=== PATIENT | female | born 1955 | race Caucasian/White ===

== ENCOUNTER 2017-04-29 16:57 | Inpatient (IN) | payer MEDICARE ==
[2017-04-29] MEDS ORDERED: LEVOFLOXACIN 750MG-D5W PMX 750 MG in DEXTROSE/WATER 1 150ML.BAG IVPB STA (19:01)
[2017-04-29] MEDS ORDERED: methylPREDNISolone SOD SUCCI 125 MG/2 ML VIAL IV STA (19:01)
[2017-04-29] MEDS ORDERED: IPRATROPIUM-ALBUTEROL 3 ML NEB INHALATION STA (19:01)
[2017-04-29] MEDS ORDERED: ACETAMINOPHEN TAB 500 MG TAB PO STA (19:03)
[2017-04-29] MEDS ORDERED: KETOROLAC 30 MG/ML 1 ML VIAL IVP STA (19:03)
[2017-04-29] MEDS ORDERED: METOCLOPRAMIDE 5 MG/ML 2 ML VIAL IVP STA (19:03)
--- NOTE | 2017-04-29 19:09 | ED ---
General Adult HPI - General Chief complaint: Extremity Problem,Nontraumatic Stated complaint: High BP, Headache, Extremity Swelling Time Seen by Provider: 04/29/17 18:55 Source: patient Mode of arrival: ambulatory Limitations: no limitations - History of Present Illness Initial comments: This 61-year-old white female presents with a complaint of some shortness of breath, dizziness, nausea, lower extremity edema bilaterally. These have been present for the past couple of days. [place]. She denies any chest pain. She does have a history of COPD does have a chronic cough which is unchanged. She denies any fever or chills at home but does have a temperature in the emergency department. She denies any other known pulmonary or cardiac diseases. She states that she cannot put her shoes on due to the swelling in her feet. She has a chronic headache which seems somewhat worse recently. She is requesting the Tylenol. She does relate that her blood pressure has been running high today and she also has been tachycardic with heart rate up to approximately 120 at times. The relates that she has daily headaches. She denies any other complaints or modifying factors. - Related Data Home Medications Medication Instructions Recorded Confirmed Aspirin 325 mg PO DAILY 04/29/17 04/29/17 Ergocalciferol (Vitamin D2) 50,000 unit PO TH 04/29/17 04/29/17 [Vitamin D2] FLUoxetine HCL [PROzac] 40 mg PO DAILY 04/29/17 04/29/17 Omeprazole 20 mg PO DAILY 04/29/17 04/29/17 Pravastatin Sodium [Pravachol] 20 mg PO DAILY 04/29/17 04/29/17 Turmeric Root Extract [Turmeric] 500 mg PO DAILY 04/29/17 04/29/17 amLODIPine [Norvasc] 10 mg PO DAILY 04/29/17 04/29/17 oxyCODONE-APAP 5-325MG [Percocet 1 tab PO BID 04/29/17 04/29/17 5-325 mg] risperiDONE [RisperDAL] 2 mg PO HS 04/29/17 04/29/17 traZODone HCL 200 mg PO HS 04/29/17 04/29/17 Allergies Allergy/AdvReac Type Severity Reaction Status Date / Time aripiprazole [From [facility]] Allergy Anaphylaxis Verified 04/29/17 19:32 Penicillins Allergy Rash/Hives Verified 04/29/17 19:32 propoxyphene [From Darvon] Allergy Rash/Hives Verified 04/29/17 19:32 protein supplement Allergy Rash/Hives Verified 04/29/17 17:17 [From [facility]] Sulfa (Sulfonamide Allergy Anaphylaxis Verified 04/29/17 19:33 Antibiotics) Review of Systems ROS Statement: Those systems with pertinent positive or pertinent negative responses have been documented in the HPI. ROS Other: All systems not noted in ROS Statement are negative. Past Medical History Past Medical History: Fibromyalgia, Hyperlipidemia, Hypertension Additional Past Medical History / Comment(s): neuropathy History of Any Multi-Drug Resistant Organisms: None Reported Past Surgical History: Hysterectomy, Tonsillectomy Past Psychological History: No Psychological Hx Reported Smoking Status: Current every day smoker Past Alcohol Use History: None Reported Past Drug Use History: None Reported General Exam - General Exam Comments Initial Comments: GENERAL: The patient is well nourished and well hydrated. VITAL SIGNS: Heart rate, blood pressure, respiratory rate reviewed as recorded in nurse's notes. EYES: Pupils are round and reactive. Extraocular movements are intact. No conjunctival / lid redness or swelling. ENT: No external evidence of injury, swelling, or ecchymosis. Airway is patent. Throat is clear. NECK: Nontender. No swelling or evidence of injury. No subcutaneous emphysema. Trachea is midline. No thyroid mass. HEART: Regular rate and rhythm. Good peripheral pulses. LUNGS/CHEST: Wheezing is noted to the bilateral chest. No ecchymosis, subcutaneous emphysema, or tenderness. ABDOMEN: Abdomen soft without tenderness. No palpable masses or organomegaly. No peritoneal signs. No abdominal wall swelling or ecchymosis. EXTREMITIES: No extremity tenderness. Normal muscle tone and function. No thoracolumbar tenderness. There is mild lower extremity swelling bilaterally but no tenderness. NEUROLOGIC: Sensation is grossly intact. Cranial nerve exam reveals face is symmetrical, tongue is midline, speech is clear. SKIN: No abrasions or ecchymosis is noted. No induration or masses noted. PSYCHIATRIC: Alert and oriented. Appropriate behavior and judgment. Limitations: no limitations Course Vital Signs 04/29/17 04/29/17 04/29/17 17:13 19:05 19:36 Temperature 98.8 F 100.3 F H Pulse Rate 110 H 98 96 Respiratory 18 20 Rate Blood Pressure 178/84 171/78 O2 Sat by Pulse 94 L 95 Oximetry 04/29/17 04/29/17 04/29/17 19:48 19:55 21:45 Temperature 98.9 F Pulse Rate 97 104 H 97 Respiratory 18 16 Rate Blood Pressure 148/68 149/60 O2 Sat by Pulse 99 100 Oximetry Medical Decision Making - Medical Decision Making The patient was seen and examined. All diagnostics were reviewed. An IV is established and she is placed on the electronic pagination system operator. This does show a sinus tachycardia. The EKG shows a sinus tachycardia at a rate of 102. There is no acute ST-T wave changes identified. The MI interval is 132, the QRS duration is 76, and the QTc interval is 456. The patient does receive some Solu-Medrol as well as 2 DuoNeb breathing treatments, Reglan and Toradol, and Tylenol. Levaquin is also ordered. Patient's labs are fairly unremarkable except for an elevated d-dimer. The chest x-ray showed likely pulmonary fibrosis versus possible congestive heart failure. The CT and her grandma the chest does show a groundglass appearance in interstitial infiltrate of changes. There is no evidence of pulmonary fibrosis. Please see report for details. The patient is feeling improved on recheck. She was given an antihypertensive and her blood pressure does come down. She is still complaining of a headache and is given some morphine. Her pulse ox on recheck is 93% on room air. This felt as though she benefit from admission to the hospital. She likely does have an interstitial pneumonia versus bronchitis with a COPD exacerbation. She is agreeable. Case is discussed with internal medicine and they're agreeable for admission as well. - Lab Data Result diagrams: 04/29/17 19:00 04/29/17 19:00 Lab Results 04/29/17 04/29/17 04/29/17 Range/Units 19:00 19:00 19:00 WBC 10.3 (3.8-10.6) k/uL RBC 4.26 (3.80-5.40) m/uL Hgb 13.7 (11.4-16.0) gm/dL Hct 38.8 (34.0-46.0) % MCV 90.9 (80.0-100.0) fL MCH 32.0 (25.0-35.0) pg MCHC 35.2 (31.0-37.0) g/dL RDW 14.3 (11.5-15.5) % Plt Count 274 (150-450) k/uL Neutrophils % 68 % Lymphocytes % 23 % Monocytes % 5 % Eosinophils % 2 % Basophils % 0 % Neutrophils # 7.0 (1.3-7.7) k/uL Lymphocytes # 2.4 (1.0-4.8) k/uL Monocytes # 0.5 (0-1.0) k/uL Eosinophils # 0.2 (0-0.7) k/uL Basophils # 0.0 (0-0.2) k/uL PT (9.0-12.0) sec INR (<1.2) APTT (22.0-30.0) sec D-Dimer (<0.60) mg/L FEU Sodium 138 (137-145) mmol/L Potassium 4.3 (3.5-5.1) mmol/L Chloride 104 (98-107) mmol/L Carbon Dioxide 27 (22-30) mmol/L Anion Gap 7 mmol/L BUN 12 (7-17) mg/dL Creatinine 0.69 (0.52-1.04) mg/dL Est GFR (MDRD) Af Amer >60 (>60 ml/min/1.73 sqM) Est GFR (MDRD) Non-Af >60 (>60 ml/min/1.73 sqM) Glucose 96 (74-99) mg/dL Calcium 9.7 (8.4-10.2) mg/dL Magnesium 1.6 (1.6-2.3) mg/dL Total Bilirubin 0.3 (0.2-1.3) mg/dL AST 42 H (14-36) U/L ALT 56 H (9-52) U/L Alkaline Phosphatase 77 (38-126) U/L Total Creatine Kinase 201 H (30-135) U/L CK-MB (CK-2) 0.8 (0.0-2.4) ng/mL CK-MB (CK-2) Rel Index 0.4 Troponin I <0.012 (0.000-0.034) ng/mL NT-Pro-B Natriuret Pep pg/mL Total Protein 6.8 (6.3-8.2) g/dL Albumin 4.2 (3.5-5.0) g/dL Urine Color Urine Appearance (Clear) Urine pH (5.0-8.0) Ur Specific [place] (1.001-1.035) Urine Protein (Negative) Urine Glucose (UA) (Negative) Urine Ketones (Negative) Urine Blood (Negative) Urine Nitrite (Negative) Urine Bilirubin (Negative) Urine Urobilinogen (<2.0) mg/dL Ur Leukocyte Esterase (Negative) 04/29/17 04/29/17 04/29/17 Range/Units 19:00 19:00 20:20 WBC (3.8-10.6) k/uL RBC (3.80-5.40) m/uL Hgb (11.4-16.0) gm/dL Hct (34.0-46.0) % MCV (80.0-100.0) fL MCH (25.0-35.0) pg MCHC (31.0-37.0) g/dL RDW (11.5-15.5) % Plt Count (150-450) k/uL Neutrophils % % Lymphocytes % % Monocytes % % Eosinophils % % Basophils % % Neutrophils # (1.3-7.7) k/uL Lymphocytes # (1.0-4.8) k/uL Monocytes # (0-1.0) k/uL Eosinophils # (0-0.7) k/uL Basophils # (0-0.2) k/uL PT 10.1 (9.0-12.0) sec INR 1.0 (<1.2) APTT 25.4 (22.0-30.0) sec D-Dimer 0.88 H (<0.60) mg/L FEU Sodium (137-145) mmol/L Potassium (3.5-5.1) mmol/L Chloride (98-107) mmol/L Carbon Dioxide (22-30) mmol/L Anion Gap mmol/L BUN (7-17) mg/dL Creatinine (0.52-1.04) mg/dL Est GFR (MDRD) Af Amer (>60 ml/min/1.73 sqM) Est GFR (MDRD) Non-Af (>60 ml/min/1.73 sqM) Glucose (74-99) mg/dL Calcium (8.4-10.2) mg/dL Magnesium (1.6-2.3) mg/dL Total Bilirubin (0.2-1.3) mg/dL AST (14-36) U/L ALT (9-52) U/L Alkaline Phosphatase (38-126) U/L Total Creatine Kinase (30-135) U/L CK-MB (CK-2) (0.0-2.4) ng/mL CK-MB (CK-2) Rel Index Troponin I (0.000-0.034) ng/mL NT-Pro-B Natriuret Pep 62 pg/mL Total Protein (6.3-8.2) g/dL Albumin (3.5-5.0) g/dL Urine Color Yellow Urine Appearance Clear (Clear) Urine pH 6.5 (5.0-8.0) Ur Specific [place] 1.012 (1.001-1.035) Urine Protein Negative (Negative) Urine Glucose (UA) Negative (Negative) Urine Ketones Negative (Negative) Urine Blood Negative (Negative) Urine Nitrite Negative (Negative) Urine Bilirubin Negative (Negative) Urine Urobilinogen <2.0 (<2.0) mg/dL Ur Leukocyte Esterase Negative (Negative) Disposition Clinical Impression: Fever, Headache, Dyspnea, COPD exacerbation, Hypertension, Tachycardia, Interstitial pulmonary disease, Bronchitis, Bilateral lower extremity edema Disposition: ADMITTED IP TO THIS [facility] Condition: Fair Time of Disposition: 21:58 Decision Date: 04/29/17 Decision Time: 21:58
[2017-04-29 19:12] LABS: Basophils % (A) 0 %; CH 32.1; CHCM 35.6; Eosinophils # (A) 0.2 k/uL (0-0.7); Eosinophils % (A) 2 %; HCT 38.8 % (34.0-46.0); HDW 3.16; HGB 13.7 gm/dL (11.4-16.0); Luc # (Auto) 0.18; Luc % (Auto) 2; Lymphocytes # (A) 2.4 k/uL (1.0-4.8); Lymphocytes % (A) 23 %; MCHC 35.2 g/dL (31.0-37.0); MCV 90.9 fL (80.0-100.0); Mean Platelet Volume 7.9; Monocytes # (A) 0.5 k/uL (0-1.0); Monocytes % (A) 5 %; Neutrophils % (A) 68 %; RBC 4.26 m/uL (3.80-5.40); RDW 14.3 % (11.5-15.5); WBC 10.3 k/uL (3.8-10.6); WBC (Perox) 10.22
[2017-04-29 19:25] LABS: ALT 56 U/L (9-52); AST 42 U/L (14-36); Alkaline Phosphatase 77 U/L (38-126); Anion Gap 7 mmol/L; Blood Urea Nitrogen 12 mg/dL (7-17); Calcium 9.7 mg/dL (8.4-10.2); Carbon Dioxide 27 mmol/L (22-30); Chloride 104 mmol/L (98-107); Glucose 96 mg/dL (74-99); Magnesium 1.6 mg/dL (1.6-2.3); Non-African American GFR(MDRD) >60 (>60 ml/min/1.73 sqM); Potassium 4.3 mmol/L (3.5-5.1); Sodium 138 mmol/L (137-145); Total Bilirubin 0.3 mg/dL (0.2-1.3); Total Protein 6.8 g/dL (6.3-8.2)
[2017-04-29 19:26] LABS: Prothrombin Time 10.1 sec (9.0-12.0)
[2017-04-29 19:27] LABS: Partial Thromboplastin Time 25.4 sec (22.0-30.0)
[2017-04-29 19:32] LABS: Creatine Kinase 201 U/L (30-135)
--- NOTE | 2017-04-29 19:33 | XR ---
EXAMINATION TYPE: XR chest 2V DATE OF EXAM: 04/29/2017 COMPARISON: NONE HISTORY: Leg edema. Difficulty breathing. TECHNIQUE: Frontal and lateral views of the chest are obtained. FINDINGS: There is coarsening of interstitial markings. There is probably some interstitial infiltra te in the right middle lobe and lingula left upper lobe. There is no pleural effusion. Pulmonary vasc ularity is difficult to evaluate because of the interstitial pulmonary density. There are chest leads . Bony thorax is intact. 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 Mild heart failure cannot be en tirely excluded.
[2017-04-29 19:45] LABS: Creatine Kinase MB 0.8 ng/mL (0.0-2.4); Troponin I <0.012 ng/mL (0.000-0.034)
--- NOTE | 2017-04-29 20:24 | US ---
EXAMINATION TYPE: US venous doppler duplex LE DATE OF EXAM: 04/29/2017 8:17 PM COMPARISON: NONE CLINICAL HISTORY: swelling. SIDE PERFORMED: Bilateral TECHNIQUE: The lower extremity deep venous system is examined utilizing real time linear array sonog pedro with graded compression, doppler sonography and color-flow sonography. VESSELS IMAGED: External Iliac Vein (EIV) Common Femoral Vein Deep Femoral Vein Greater Saphenous Vein * Femoral Vein Popliteal Vein Small Saphenous Vein * Proximal Calf Veins (* superficial vessels) Right Leg: Negative for DVT Left Leg: Negative for DVT No evidence of DVT bilateral legs IMPRESSION: Normal exam. No evidence of deep venous thrombosis in both legs.
[2017-04-29] MEDS ORDERED: RX INFO: IV CONTRAST WAS GIVEN 1 EACH MISC MISCELLANE PRN (20:40)
[2017-04-29 20:41] LABS: Appearance,Urine Clear (Clear); Bilirubin,Urine Negative (Negative); Glucose,Urine (UA) Negative (Negative); Ketones,Urine Negative (Negative); Leukocyte Esterase,Urine Negative (Negative); Nitrite,Urine Negative (Negative); PH, Urine 6.5 (5.0-8.0); Protein,Urine Negative (Negative); Specific Gravity,Urine 1.012 (1.001-1.035); UA Billing (MACRO vs. MICRO) CHEM; Urobilinogen,Urine <2.0 mg/dL (<2.0)
[2017-04-29] MEDS ORDERED: FUROSEMIDE 10 MG/ML 10 ML VIAL IV STA (20:45)
--- NOTE | 2017-04-29 21:29 | CT ---
EXAMINATION TYPE: CT angio chest DATE OF EXAM: 04/29/2017 9:08 PM COMPARISON: NONE HISTORY: Hypertension, tachycardia, chest pressure, headache and lower extremity swelling. CT DLP: 628.50 mGycm Automated exposure control for dose reduction was used. CONTRAST: CTA scan of the thorax is performed with IV Contrast, patient injected with 66 mL of Omnipaque 350, p ulmonary embolism protocol. There are 3-D post processed images.. FINDINGS: There is some groundglass interstitial infiltrates the lung apices. There is subpleural interstitial reticular infiltrate in both lungs. Heart is enlarged. There is small pericardial effusion. Thoracic aorta is atheromatous. There is no evidence of aneurysm or dissection. I see no filling defects in the pulmonary arteries. There is no mediastinal adenopathy. There are no hilar masses. There is no pleural effusion. The bony thorax is intact. IMPRESSION: CARDIOMEGALY. NO EVIDENCE OF PULMONARY EMBOLISM. PULMONARY INTERSTITIAL FIBROTIC CHANGES. NO EVIDENCE OF A PULMONARY MASS.
[2017-04-29] MEDS ORDERED: MORPHINE SULFATE 4 MG/ML SYRINGE IV STA (21:54)
[2017-04-29 23:44] VITALS: RESP 18
[2017-04-30 00:36] VITALS: BMI 41.2
[2017-04-30] MEDS: oxyCODONE-APAP 5-325MG 1 EACH TAB PO SCH ×3 (00:48→20:52)
[2017-04-30] MEDS ORDERED: NALOXONE 0.4 MG/ML 1 ML VIAL IV PRN (01:08)
--- NOTE | 2017-04-30 01:18 | P.HPIM ---
History of Present Illness H&P Date: 04/29/17 Chief Complaint: uncontrolled blood pressure 61 year old female with PMHx of COPD, fibromyalgia and hypertension Patient reports that she is visiting from [place] where she resides for the past few days, she has traveled by car and took multiple stops during the trip. She is presented today due to poorly controlled blood pressure. She reports that she did not feel well at home for which she was checking her blood pressure and found it uncontrolled with reading ranging 160-180 for systolic blood pressure. She also reports some difficulty with breathing and coughing that has been worsening over the past few weeks and now associated with right chest pressure every time she tries to take a deep breath. Otherwise she is denying any chest pain dizziness lightheadedness nausea or vomiting. She also reports chronic headache, and bilateral lower extremity pain and tenderness over the calf muscles that has been going on for few months now. She reports that she she has discussed the symptoms with her regular physician who has performed a CAT scan of the head and was negative for any acute process that was done around 3 months ago. She also reports some cardiac workup that was done 2 years ago and reports to be negative. Her doctor has recently increased her amlodipine before coming on discharge up to 10 mg to help control her blood pressure however she's has been noticing increased swelling of her lower extremities over the past few days. She's currently feels comfortable however slightly anxious, her breathing has improved after receiving some breathing treatments. She continues to voice concerns about blood pressure however she denies any focal neurologic deficits, any changes in her speech, any changes in her chronic headache, denies any changes in vision or hearing. In the emergency department d-dimer was done and tested positive for which venous ultrasound of the lower extremity and CT angiogram the chest was performed both were negative for any blood clots. Advanced directives were discussed with the patient she elected to be a full code and named her ex- Yovany Olvera as patient's surrogate encase she loses the capacity to make decisions regarding her health Review of Systems Constitutional: Patient reports no chills, no night sweating, no significant weight changes. Patient reports possible low-grade fever Eyes: Patient reports no visual changes, no eye pain ENT: Patient reports no ear pain, no rhinorrhea, no sore throat Cardiovascular: Patient reports no chest pain, no exertional dyspnea, no orthopnea, no paroxysmal nocturnal dyspnea. Patient reports bilateral lower extremity edema and some chest discomfort mainly on the right side Respiratory:Patient reports shortness of breath, coughing and wheezing Gastrointestinal: Patient reports no diarrhea, no constipation, no nausea no vomiting, no abdominal pain Genitourinary: Patient reports no dysuria, no hematuria, no changes in urinary habits, no genital lesions Musculoskeletal: Patient reports no muscle pain, diffuse joint pain Psychiatric: Patient reports no changes in mood or memory, no suicidal ideation , anxiety Endocrine: Patient reports no heat intolerance, no cold intolerance, no excessive thirst, no polyuria Neurological: Patient reports no focal neurologic deficits, no weakness, no numbness, no tingling Hem/Lymphatic: Patient reports no bleeding tendency, no bruising, no swollen lymph glands Allergic/Immun: Patient reports no recent allergic reactions Skin: Patient reports no rashes, no pruritis, no ulcers Past Medical History Past Medical History: COPD, Fibromyalgia, Hyperlipidemia, Hypertension Additional Past Medical History / Comment(s): neuropathy History of Any Multi-Drug Resistant Organisms: None Reported Past Surgical History: Hysterectomy, Tonsillectomy Past Psychological History: No Psychological Hx Reported Smoking Status: Current every day smoker Past Alcohol Use History: None Reported Past Drug Use History: None Reported - Past Family History Mother Family Medical History: Coronary Artery Disease (CAD), Diabetes Mellitus, Hypertension Father Family Medical History: Diabetes Mellitus, Hypertension Medications and Allergies Home Medications and Allergies Comment(s): reviewed Home Medications Medication Instructions Recorded Confirmed Type Aspirin 325 mg PO DAILY 04/29/17 04/29/17 History Ergocalciferol (Vitamin D2) 50,000 unit PO TH 04/29/17 04/29/17 History [Vitamin D2] FLUoxetine HCL [PROzac] 40 mg PO DAILY 04/29/17 04/29/17 History Omeprazole 20 mg PO DAILY 04/29/17 04/29/17 History Pravastatin Sodium [Pravachol] 20 mg PO DAILY 04/29/17 04/29/17 History Turmeric Root Extract [Turmeric] 500 mg PO DAILY 04/29/17 04/29/17 History amLODIPine [Norvasc] 10 mg PO DAILY 04/29/17 04/29/17 History oxyCODONE-APAP 5-325MG [Percocet 1 tab PO BID 04/29/17 04/29/17 History 5-325 mg] risperiDONE [RisperDAL] 2 mg PO HS 04/29/17 04/29/17 History traZODone HCL 200 mg PO HS 04/29/17 04/29/17 History Allergies Allergy/AdvReac Type Severity Reaction Status Date / Time aripiprazole [From [facility]] Allergy Anaphylaxis Verified 04/30/17 00:37 Penicillins Allergy Rash/Hives Verified 04/30/17 00:37 propoxyphene [From [facility]] Allergy Rash/Hives Verified 04/30/17 00:37 protein supplement Allergy Rash/Hives Verified 04/30/17 00:37 [From [facility]] Sulfa (Sulfonamide Allergy Anaphylaxis Verified 04/30/17 00:37 Antibiotics) Physical Exam Vitals: Vital Signs Temp Pulse Resp BP Pulse Ox 04/29/17 23:42 89 18 140/61 99 04/29/17 21:45 98.9 F 97 16 149/60 100 04/29/17 19:55 104 H 18 148/68 99 04/29/17 19:48 97 04/29/17 19:36 96 04/29/17 19:05 100.3 F H 98 20 171/78 95 04/29/17 17:13 98.8 F 110 H 18 178/84 94 L Intake and Output 04/29/17 04/29/17 04/30/17 14:59 22:59 06:59 Other: Weight 99.79 kg Patient Weight 04/30/17 06:59 Weight 99.79 kg Constitutional: No acute distress, conversant, pleasant Eyes: Anicteric sclerae, moist conjunctiva, no lid-lag Pupils equal round reactive to light ENMT: NC/AT Oropharynx clear, no erythema, exudates Neck: Supple, FROM, no masses, or JVD No carotid bruits No thyromegaly Lungs: Prolonged expiratory phase with both inspiratory and expiratory wheezes diffusely. Basal inspiratory rales bilaterally Clear to percussion Normal respiratory effort, no accessory muscle use Cardiovascular: Heart regular in rate and rhythm, No murmurs, gallops, or rubs No peripheral edema Abdominal: Soft Nontender, no guarding, rebound or rigidity Abdomen moving with respiration Normoactive bowel sounds No hepatomegaly, No splenomegaly No palpable mass No abdominal wall hernia noted Skin: Normal temperature, tone, texture, turgor No induration No subcutaneous nodules No rash, lesions No ulcers Extremities: No digital cyanosis No clubbing Pedal pulses intact and symmetrical Radial pulses intact and symmetrical calf tenderness bilaterally Psychiatric: Alert and oriented to person, place and time Appropriate affect fair judgment Neuro Muscles Strength 5/5 in all 4 extremities Sensation to light touch grossly present throughout Cranial nerves II-XII grossly intact No focal sensory deficits Lymphatics: no palpable cervical or supraclavicular , or inguinal lymph nodes Results Results: Reviewed CBC & Chem 7: 04/29/17 19:00 04/29/17 19:00 Labs: Abnormal Lab Results - Last 24 Hours (Table) 04/29/17 04/29/17 04/29/17 Range/Units 19:00 19:00 19:00 D-Dimer 0.88 H (<0.60) mg/L FEU AST 42 H (14-36) U/L ALT 56 H (9-52) U/L Total Creatine Kinase 201 H (30-135) U/L Assessment and Plan (1) COPD exacerbation Status: Acute (2) Accelerated hypertension Status: Acute (3) Bronchitis Status: Acute (4) Tachycardia Status: Acute (5) Tobacco abuse Status: Chronic (6) Headache Status: Chronic (7) DVT prophylaxis Status: Acute (8) Fibromyalgia Status: Chronic (9) Peripheral neuropathy Status: Chronic Plan: she patient will be started on COPD pathway IV steroids for one day and then switched to by mouth steroids Started on inhalers DuoNeb's, Spiriva, long acting beta agonist and inhaled corticosteroids Patient counseled to quit smoking nicotine replacement therapy offered Patient should strictly avoid smoke exposure and smoking Doxycycline for underlying bronchitis Positive d-dimer with recent history of traveling by car in bilateral calf muscle tenderness Venous duplex ultrasound of lower extremities and CT angios the chest both performed and did not show any evidence of acute blood clot CT angios the chest did not show evidence of infiltrates Blood pressure controlled continue with amlodipine 10 mg Add hydrochlorothiazide 25 mg daily Check electrolytes and kidney function in the morning History of anxiety continue with Prozac Continue with risperidone and trazodone home medications CODE STATUS full code Time with Patient: Greater than 30
[2017-04-30] MEDS: risperiDONE 2 MG TAB PO SCH ×2 (01:37→20:50)
[2017-04-30] MEDS: traZODone HCL 100 MG TAB PO SCH ×2 (01:37→20:49)
[2017-04-30] MEDS ORDERED: KETOROLAC 30 MG/ML 1 ML VIAL IVP ONE (03:04)
[2017-04-30] MEDS: methylPREDNISolone SOD SUCCI 125 MG/2 ML VIAL IV SCH ×4 (05:46→23:59)
[2017-04-30 07:01] LABS: Glucose,Whole Blood 132 mg/dL (75-99)
[2017-04-30] MEDS: SYMBICORT 160-4.5 MCG INHALER INHALATION SCH ×2 (07:22→20:06)
[2017-04-30] MEDS: IPRATROPIUM-ALBUTEROL 3 ML NEB INHALATION PRN ×2 (07:23→20:08)
[2017-04-30] MEDS: INSULIN LISPRO (humaLOG) 300 UNIT/3 ML VIAL SQ SCH ×4 (07:48→21:07)
[2017-04-30] MEDS: amLODIPine 5 MG TAB PO SCH (08:03)
[2017-04-30] MEDS: PRAVASTATIN SODIUM 20 MG TAB PO SCH (08:04)
[2017-04-30] MEDS: ASPIRIN 325 MG TAB PO SCH (08:04)
[2017-04-30] MEDS: DOXYCYCLINE 50 MG CAP PO SCH ×2 (08:04→20:49)
[2017-04-30] MEDS: HYDROCHLOROTHIAZIDE 25 MG TAB PO SCH (08:04)
[2017-04-30] MEDS: FLUoxetine HCL 20 MG CAP PO SCH (08:04)
[2017-04-30] MEDS: NICOTINE 21MG/24HR PATCH TRANSDERM SCH (08:05)
[2017-04-30] MEDS: ENOXAPARIN 40 MG/0.4 ML SYRINGE SQ SCH (08:05)
[2017-04-30] MEDS: PANTOPRAZOLE 40 MG TABLET PO SCH (08:05)
[2017-04-30] MEDS ORDERED: NON-FORMULARY DRUG (Turmeric Root Extract [Turmeric] 500 MG) PO SCH (09:00)
[2017-04-30 09:09] LABS: Basophils % (A) 0 %; CH 31.9; CHCM 34.9; Eosinophils % (A) 0 %; HCT 39.6 % (34.0-46.0); HDW 3.13; HGB 13.8 gm/dL (11.4-16.0); Luc # (Auto) 0.02; Luc % (Auto) 0; Lymphocytes # (A) 0.8 k/uL (1.0-4.8); Lymphocytes % (A) 10 %; MCH 32.1 pg (25.0-35.0); MCHC 34.9 g/dL (31.0-37.0); MCV 91.9 fL (80.0-100.0); Monocytes # (A) 0.1 k/uL (0-1.0); Monocytes % (A) 2 %; Neutrophils # (A) 6.7 k/uL (1.3-7.7); Neutrophils % (A) 88 %; RBC 4.31 m/uL (3.80-5.40); RDW 14.4 % (11.5-15.5); WBC 7.6 k/uL (3.8-10.6); WBC (Perox) 8.06
[2017-04-30 09:19] LABS: ALT 58 U/L (9-52); AST 37 U/L (14-36); Alkaline Phosphatase 70 U/L (38-126); Anion Gap 12 mmol/L; Blood Urea Nitrogen 12 mg/dL (7-17); Calcium 9.7 mg/dL (8.4-10.2); Carbon Dioxide 25 mmol/L (22-30); Chloride 100 mmol/L (98-107); Glucose 241 mg/dL (74-99); Non-African American GFR(MDRD) >60 (>60 ml/min/1.73 sqM); Potassium 4.4 mmol/L (3.5-5.1); Sodium 137 mmol/L (137-145); Total Bilirubin 0.3 mg/dL (0.2-1.3); Total Protein 6.8 g/dL (6.3-8.2)
[2017-04-30] MEDS: TIOTROPIUM 18 MCG/PUFF INHALER INHALATION SCH (11:28)
[2017-04-30 11:37] LABS: C Reactive Protein 24.5 mg/L (<10.0)
[2017-04-30] MEDS ORDERED: ACETAMINOPHEN TAB 325 MG TAB ONE (12:44)
[2017-04-30] MEDS: ACETAMINOPHEN TAB 325 MG TAB PO PRN ×2 (14:00→18:47)
[2017-04-30 15:55] LABS: Glucose,Whole Blood 176 mg/dL (75-99)
--- NOTE | 2017-04-30 16:30 | P.PN ---
Subjective Principal diagnosis: The patient is a 61-year-old obese female with a past history of COPD, rheumatoid arthritis and fibromyalgia presented with dyspnea and cough, she had elevated d-dimer subsequent CT of the chest was negative for PE. She was started on treatment for acute COPD exacerbation due to acute bronchitis and sinusitis Patient reports history of rheumatoid arthritis, currently not known to be steroid dependent also has family history of autoimmune disorder such as lupus. Patient reports fever overnight, requesting to go home. Discussed that we would need to work up her fever and repeat a blood culture Objective - Vital Signs Vital signs: Vital Signs Temp 98.3 F 04/30/17 09:31 Pulse 100 04/30/17 07:40 Resp 18 04/30/17 07:00 BP 147/80 04/30/17 07:00 Pulse Ox 96 04/30/17 07:00 Intake & Output 04/29/17 04/30/17 04/30/17 18:59 06:59 18:59 Weight 99.79 kg 110.5 kg Other: Voiding Method Toilet # Voids 0 - Exam Constitutional: No acute distress, conversant, pleasant Eyes: Anicteric sclerae, moist conjunctiva, no lid-lag, PERRLA ENMT: NC/AT,Oropharynx clear, no erythema, exudates Neck:Supple, FROM, no masses, or JVD, No carotid bruits; No thyromegaly Lungs: Clear to auscultation, Clear to percussion, Normal respiratory effort, no accessory muscle use Cardiovascular: Heart regular in rate and rhythm, No murmurs, gallops, or rubs no peripheral edema Abdominal: Soft Nontender, non distended, no guarding, no rebound or rigidity, Normoactive bowel sounds No hepatomegaly, No splenomegaly, No palpable mass No abdominal wall hernia noted Skin: Normal temperature, tone, texture, turgor, No induration No subcutaneous nodules, No rash, lesions, No ulcers Extremities:No digital cyanosis No clubbing, Pedal pulses intact and symmetrical Radial pulses intact and symmetrical Normal gait and station, No calf tenderness Psychiatric: Alert and oriented to person, place and time, Appropriate affect Intact judgement Neuro: Muscles Strength 5/5 in all 4 extremities, Sensation to light touch grossly present throughout, Cranial nerves II-XII grossly intact. No focal sensory deficits - Labs CBC & Chem 7: 04/30/17 08:38 04/30/17 08:38 Labs: Abnormal Lab Results - Last 24 Hours (Table) 04/29/17 04/29/17 04/29/17 Range/Units 19:00 19:00 19:00 Lymphocytes # (1.0-4.8) k/uL D-Dimer 0.88 H (<0.60) mg/L FEU Glucose (74-99) mg/dL POC Glucose (mg/dL) (75-99) mg/dL AST 42 H (14-36) U/L ALT 56 H (9-52) U/L Total Creatine Kinase 201 H (30-135) U/L 04/30/17 04/30/17 04/30/17 Range/Units 06:56 08:38 08:38 Lymphocytes # 0.8 L (1.0-4.8) k/uL D-Dimer (<0.60) mg/L FEU Glucose 241 H (74-99) mg/dL POC Glucose (mg/dL) 132 H (75-99) mg/dL AST 37 H (14-36) U/L ALT 58 H (9-52) U/L Total Creatine Kinase (30-135) U/L Microbiology - Last 24 Hours (Table) 04/29/17 20:20 Urine Culture - Preliminary Urine,Voided Assessment and Plan (1) COPD exacerbation Narrative/Plan: CTA of the chest negative for pulmonary embolism showing pulmonary interstitial fibrotic changes * Continue treatment with scheduled and when necessary bronchodilator treatments , systemic steroids oral prednisone * Continue supplemental oxygen, with great sats Status: Acute (2) Accelerated hypertension Narrative/Plan: Blood pressure much improved since starting HCTZ, continue with this regimen of this time Status: Resolved (3) Fever Narrative/Plan: CT of the chest showing groundglass infiltrates lung apices subpleural interstitial reticular infiltrates in both lungs * Continue doxycycline analysis negative blood cultures pending attempt to obtain sputum culture * She also has underlying autoimmune disorder with rheumatoid arthritis Status: Acute (4) Bilateral lower extremity edema Narrative/Plan: Likely secondary to medication side effect due to the increased dose of Norvasc * BNP was negative, started on diuretics with HCTZ Status: Acute (5) Rheumatoid arthritis Narrative/Plan: Possible flare we'll check inflammatory markers CRP and ESR, currently on systemic steroids to treat her COPD exacerbation Status: Acute (6) Dyspnea Narrative/Plan: CTA of the chest negative for pulmonary embolism showing pulmonary interstitial fibrotic changes, noted groundglass interstitial infiltrates in the lung apices subpleural interstitial reticular infiltrates in both lung. Likely has interstitial lung disease secondary to rheumatoid arthritis Status: Acute
[2017-04-30 17:08] LABS: Glucose,Whole Blood 135 mg/dL (75-99)
[2017-04-30] MEDS ORDERED: LEVOFLOXACIN 750MG-D5W PMX 750 MG in DEXTROSE/WATER 1 150ML.BAG IVPB SCH (19:00)
[2017-04-30 21:08] LABS: Glucose,Whole Blood 216 mg/dL (75-99)
[2017-05-01] MEDS: ACETAMINOPHEN TAB 325 MG TAB PO PRN ×2 (01:49→12:33)
[2017-05-01 07:32] LABS: Glucose,Whole Blood 142 mg/dL (75-99)
[2017-05-01] MEDS: IPRATROPIUM-ALBUTEROL 3 ML NEB INHALATION PRN ×2 (07:36→11:18)
[2017-05-01] MEDS: TIOTROPIUM 18 MCG/PUFF INHALER INHALATION SCH (07:36)
[2017-05-01] MEDS: SYMBICORT 160-4.5 MCG INHALER INHALATION SCH (07:36)
[2017-05-01 07:52] VITALS: BP 153/72; TEMP 97.6
[2017-05-01] MEDS: amLODIPine 5 MG TAB PO SCH (08:21)
[2017-05-01] MEDS: PRAVASTATIN SODIUM 20 MG TAB PO SCH (08:21)
[2017-05-01] MEDS: ASPIRIN 325 MG TAB PO SCH (08:21)
[2017-05-01] MEDS: PANTOPRAZOLE 40 MG TABLET PO SCH (08:21)
[2017-05-01] MEDS: FLUoxetine HCL 20 MG CAP PO SCH (08:21)
[2017-05-01] MEDS: oxyCODONE-APAP 5-325MG 1 EACH TAB PO SCH (08:21)
[2017-05-01] MEDS: NICOTINE 21MG/24HR PATCH TRANSDERM SCH (08:21)
[2017-05-01] MEDS: HYDROCHLOROTHIAZIDE 25 MG TAB PO SCH (08:21)
[2017-05-01] MEDS: DOXYCYCLINE 50 MG CAP PO SCH (08:21)
[2017-05-01] MEDS: ENOXAPARIN 40 MG/0.4 ML SYRINGE SQ SCH (08:22)
[2017-05-01] MEDS: INSULIN LISPRO (humaLOG) 300 UNIT/3 ML VIAL SQ SCH ×2 (08:22→12:32)
[2017-05-01 08:53] LABS: Anion Gap 10 mmol/L; Blood Urea Nitrogen 18 mg/dL (7-17); Calcium 10.4 mg/dL (8.4-10.2); Carbon Dioxide 28 mmol/L (22-30); Chloride 103 mmol/L (98-107); Glucose 164 mg/dL (74-99); Magnesium 1.8 mg/dL (1.6-2.3); Non-African American GFR(MDRD) >60 (>60 ml/min/1.73 sqM); Potassium 4.4 mmol/L (3.5-5.1); Sodium 141 mmol/L (137-145)
[2017-05-01 08:59] LABS: Basophils % (A) 0 %; CH 31.8; CHCM 34.7; Eosinophils % (A) 0 %; HCT 40.8 % (34.0-46.0); HDW 3.08; HGB 13.9 gm/dL (11.4-16.0); Luc # (Auto) 0.06; Luc % (Auto) 0; Lymphocytes # (A) 1.3 k/uL (1.0-4.8); Lymphocytes % (A) 9 %; MCH 31.4 pg (25.0-35.0); MCV 92.3 fL (80.0-100.0); Mean Platelet Volume 8.1; Monocytes # (A) 0.3 k/uL (0-1.0); Monocytes % (A) 2 %; Neutrophils # (A) 12.8 k/uL (1.3-7.7); Neutrophils % (A) 88 %; RBC 4.43 m/uL (3.80-5.40); RDW 14.4 % (11.5-15.5); WBC 14.5 k/uL (3.8-10.6)
[2017-05-01] MEDS ORDERED: predniSONE 20 MG TAB PO SCH (09:00)
--- NOTE | 2017-05-01 10:57 | P.DS ---
Providers Date of admission: 04/29/17 23:27 Expected date of discharge: 05/01/17 Attending physician: MD Freddy Bailey MD Primary care physician: Physician Nonstaff - Discharge Diagnosis(es) (1) COPD exacerbation Current Visit: Yes Status: Resolved (2) Accelerated hypertension Current Visit: Yes Status: Resolved (3) Bilateral lower extremity edema Current Visit: Yes Status: Acute (4) Rheumatoid arthritis Current Visit: Yes Status: Acute (5) Dyspnea Current Visit: Yes Status: Acute (6) Interstitial pneumonia Current Visit: Yes Status: Acute Hospital Course: The patient is a 61-year-old female that was admitted with acute COPD exacerbation secondary to a underlying interstitial pneumonia, She was placed on supplemental oxygen and started on scheduled and when necessary bronchodilator breathing treatments, systemic steroids And antibiotics with doxycycline. She had a CTA of the chest that was negative for PE, but did show groundglass interstitial infiltrates of the lung apices, her fever quickly resolved respiratory status gradually improved. The patient has a known history of medical noncompliance this was discussed with The patient. The patient had initially presented with accelerated hypertension and was noncompliant with her blood pressure medication this was causing lower extremity swelling, she was subsequently started on HCTZ in addition to her Norvasc and this brought her blood pressure under better control. The patient has a history of rheumatoid arthritis and was complaining of diffuse joint arthralgias, her serum rheumatoid factor is elevated at 17. She was on steroids for her COPD her arthralgias also improved, he was instructed to follow up with her PCP once she returns to [facility]. The patient was weaned off oxygen and her steroids were switched to Solu-Medrol to prednisone she was subsequently discharged stable condition after passing ambulatory oximetry test. New prescriptions at discharge HCTZ 25 mg by mouth daily, doxycycline 100 mg by mouth twice a day, prednisone 40 mg by mouth daily , albuterol inhaler 2 puffs every 4 hours when necessary. This discharge process took approximately 30 minutes Patient Condition at Discharge: Fair Plan - Discharge Summary New Discharge Prescriptions: New Acetaminophen Tab [Tylenol] 650 mg PO Q12HR PRN tab PRN Reason: Fever And/ Or Pain Albuterol Inhaler [Ventolin Hfa Inhaler] 2 puff INHALATION Q4HR PRN #1 inhaler PRN Reason: cough/SOA Budesonide-Formot 160-4.5 Mcg [Symbicort 160-4.5 Mcg Inhaler] 2 puff INHALATION RT-BID #1 puff Doxycycline [Vibramycin] 100 mg PO BID #28 cap Hydrochlorothiazide [Hydrodiuril] 25 mg PO DAILY #30 tab predniSONE 40 mg PO DAILY #12 tab Continue risperiDONE [RisperDAL] 2 mg PO HS oxyCODONE-APAP 5-325MG [Percocet 5-325 mg] 1 tab PO BID Turmeric Root Extract [Turmeric] 500 mg PO DAILY Pravastatin Sodium [Pravachol] 20 mg PO DAILY Aspirin 325 mg PO DAILY amLODIPine [Norvasc] 10 mg PO DAILY Omeprazole 20 mg PO DAILY Ergocalciferol (Vitamin D2) [Vitamin D2] 50,000 unit PO TH traZODone HCL 200 mg PO HS FLUoxetine HCL [PROzac] 40 mg PO DAILY Discharge Medication List Aspirin 325 mg PO DAILY 04/29/17 [History] Ergocalciferol (Vitamin D2) [Vitamin D2] 50,000 unit PO TH 04/29/17 [History] FLUoxetine HCL [PROzac] 40 mg PO DAILY 04/29/17 [History] Omeprazole 20 mg PO DAILY 04/29/17 [History] Pravastatin Sodium [Pravachol] 20 mg PO DAILY 04/29/17 [History] Turmeric Root Extract [Turmeric] 500 mg PO DAILY 04/29/17 [History] amLODIPine [Norvasc] 10 mg PO DAILY 04/29/17 [History] oxyCODONE-APAP 5-325MG [Percocet 5-325 mg] 1 tab PO BID 04/29/17 [History] risperiDONE [RisperDAL] 2 mg PO HS 04/29/17 [History] traZODone HCL 200 mg PO HS 04/29/17 [History] Acetaminophen Tab [Tylenol] 650 mg PO Q12HR PRN tab 05/01/17 [Rx] Albuterol Inhaler [Ventolin Hfa Inhaler] 2 puff INHALATION Q4HR PRN #1 inhaler 05/01/17 [Rx] Budesonide-Formot 160-4.5 Mcg [Symbicort 160-4.5 Mcg Inhaler] 2 puff INHALATION RT-BID #1 puff 05/01/17 [Rx] Doxycycline [Vibramycin] 100 mg PO BID #28 cap 05/01/17 [Rx] Hydrochlorothiazide [Hydrodiuril] 25 mg PO DAILY #30 tab 05/01/17 [Rx] predniSONE 40 mg PO DAILY #12 tab 05/01/17 [Rx] Patient Instructions/Handouts: COPD (Chronic Obstructive Pulmonary Disease) (DC ) Discharge Disposition: HOME SELF-CARE
[2017-05-01 12:10] VITALS: PULSE 92
[2017-05-01 12:13] LABS: Glucose,Whole Blood 174 mg/dL (75-99)
== END 2017-05-01 13:40 | disposition home or self-care (01) | DRG 191 ==
LOC: EC 16:57 → 4MS4W 23:27
PROVIDERS: ADMIT Internal Medicine; ATTEND Internal Medicine
DX: J44.0 Chronic obstructive pulmonary disease with (acute) lower respiratory infection (principal); J84.9 Interstitial pulmonary disease, unspecified; J44.1 Chronic obstructive pulmonary disease with (acute) exacerbation; E66.9 Obesity, unspecified; E78.5 Hyperlipidemia, unspecified; F17.200 Nicotine dependence, unspecified, uncomplicated; G62.9 Polyneuropathy, unspecified; I10 Essential (primary) hypertension; M06.9 Rheumatoid arthritis, unspecified; M79.7 Fibromyalgia; F41.9 Anxiety disorder, unspecified; R60.0 Localized edema; R51 Headache; J01.90 Acute sinusitis, unspecified; T46.1X5A Adverse effect of calcium-channel blockers, initial encounter; Z79.82 Long term (current) use of aspirin; Z79.899 Other long term (current) drug therapy; Z91.14 Patient's other noncompliance with medication regimen; Z88.0 Allergy status to penicillin; Z88.2 Allergy status to sulfonamides; Z88.8 Allergy status to other drugs, medicaments and biological substances; Z82.49 Family history of ischemic heart disease and other diseases of the circulatory system; Y92.009 Unspecified place in unspecified non-institutional (private) residence as the place of occurrence of the external cause
CPT/HCPCS: 36415; 71020; 71275; 80048; 80053; 81003; 82550; 82553; 83735; 83880; 84439; 84443; 84484; 85025; 85379; 85610; 85652; 85730; 86140; 86431; 87040; 87086; 93005; 93970; 94640; 94760; 96365; 96366; 96375; 99285